=== PATIENT | female | born 1945 | race Caucasian/White ===

== ENCOUNTER 2025-07-28 19:46 | Emergency (ER) | payer MEDICARE, OTHER ==
[~2025-07-28] VITALS: Ht 170.2 cm; Wt 59.0 kg
[2025-07-28 20:14] VITALS: BP 205/99; PULSE 83; RESP 18; TEMP 98.6; O2SAT 100
== END 2025-07-28 22:05 | disposition left against medical advice (07) ==
LOC: EMS 19:46
DX: M79.672 Pain in left foot (principal); Z53.21 Procedure and treatment not carried out due to patient leaving prior to being seen by health care provider
CPT/HCPCS: 93005; 99281; Z7502